=== PATIENT | male | born 1970 | race African-American/Black ===

== ENCOUNTER 2018-11-10 10:56 | Emergency (ER) | payer BC ==
[~2018-11-10] VITALS: Ht 182.9 cm; Wt 87.2 kg
--- NOTE | 2018-11-10 11:05 | NUR ---
BIB SELF, WITH C/O L ABDOMEN AND FLANK PAIN SINCE SUNDAY, "IT WAS UNBEARABLE PAIN THIS MORNING". TO ER BED 7, HOOKED TO MONITOR, CHANGED TO GOWN, AWAITING MD ZAFAR.
--- NOTE | 2018-11-10 11:35 | NUR ---
DR GOMEZ AT BEDSIDE
[2018-11-10] MEDS ORDERED: KETOROLAC TROMETHAMINE INJ 30 MG/ML VIAL ONE (11:58)
[2018-11-10] MEDS ORDERED: ONDANSETRON HCL/PF 4 MG/2 ML VIAL ONE (11:58)
[2018-11-10] MEDS ORDERED: HYDROMORPHONE 1 MG/1 ML DISP.SYRIN ONE (11:59)
--- NOTE | 2018-11-10 11:59 | NUR ---
DILAUDID 0.5MG IV WASTE WITNESSED BY MYSELF
[2018-11-10] MEDS ORDERED: ONDANSETRON HCL/PF - ER 4 MG/2 ML VIAL IV ONE (12:00)
[2018-11-10] MEDS ORDERED: KETOROLAC TROMETHAMINE INJ 30 MG/ML VIAL IV ONE (12:00)
[2018-11-10] MEDS ORDERED: IV NS 0.9% 1,000 ML BAG IV ONE (12:00)
[2018-11-10] MEDS ORDERED: HYDROMORPHONE INJ 0.5 MG/0.5 ML SYRINGE IV ONE (12:00)
--- NOTE | 2018-11-10 13:38 | NUR ---
IV removed. Catheter intact and site benign. Pressure and 4x4 applied to site. No bleeding noted.Patient discharged to home in stable condition. Written and verbal after care instructions given. Patient verbalizes understanding of instruction.
[2018-11-10 13:40] VITALS: BP 118/69
== END 2018-11-10 13:40 | disposition home or self-care (01) ==
LOC: ER 10:59
DX: N20.0 Calculus of kidney (principal)
CPT/HCPCS: A4606; J1170; J1885; J2405; J7030; Z7610

== ENCOUNTER 2024-05-03 09:21 | Emergency (ER) | payer BC, OTHER ==
[~2024-05-03] VITALS: Ht 185.4 cm; Wt 79.4 kg
[2024-05-03] MEDS ORDERED: ONDANSETRON HCL/PF 4 MG/2 ML VIAL ONE (10:01)
[2024-05-03] MEDS ORDERED: MORPHINE SULFATE INJ 4 MG/ML DISP.SYRIN ONE (10:01)
[2024-05-03 10:07] LABS: BASOPHILS % (AUTO) 0.3 % (0.0-2.0); EOSINOPHILS % (AUTO) 0.1 % (0.0-6.0); HEMATOCRIT 41 % (39-51); LYMPHOCYTES # (AUTO) 0.6 K/uL (0.8-4.8); LYMPHOCYTES % (AUTO) 5.1 % (20.0-44.0); MEAN CORPUSCULAR HEMOGLOBIN 24 PG (26.0-33.0); MEAN CORPUSCULAR HGB CONC 32 g/dl (31.0-36.0); MEAN CORPUSCULAR VOLUME 76 fL (80-96); MONOCYTES # (AUTO) 0.5 K/uL (0.1-1.30); MONOCYTES % (AUTO) 4.8 % (2.0-12.0); NEUTROPHILS # (AUTO) 9.9 K/uL (1.8-8.9); NEUTROPHILS % (AUTO) 89.7 % (43.0-81.0); PLATELET COUNT (AUTO) 185 K/uL (150-450); RED BLOOD CELL COUNT(AUTO) 5.39 MIL/uL (4.5-6.0); RED CELL DISTRIBUTION WIDTH 14.5 % (11.5-15.0); WHITE BLOOD COUNT (AUTO) 11.1 K/uL (4.3-11.0)
[2024-05-03 10:12] LABS: APPEARANCE,URINE CLEAR (CLEAR); BILIRUBIN,URINE 2+ (NEGATIVE); BLOOD, URINE 2+ Ery/uL (NEGATIVE); COLOR,URINE YELLOW (YELLOW); KETONES,URINE 3+ mg/dL (NEGATIVE); LEUKOCYTE ESTERASE ,URINE NEGATIVE (NEGATIVE); NITRITE, URINE NEGATIVE (NEGATIVE); PROTEIN,URINE TRACE mg/dl (NEGATIVE); UGLUCOSE NEGATIVE (NEGATIVE)
[2024-05-03] MEDS: IV NS 0.9% 1,000 ML BAG IV ONE (10:12)
[2024-05-03 10:16] LABS: ADD URINE CULTURE NO; BACTERIA,URINE Rare /HPF (None Seen); SQUAMOUS EPITHELIAL CELL,UR Few /HPF (None Seen); WBC,URINE 0-2 /HPF (0-3)
[2024-05-03] MEDS: ONDANSETRON HCL/PF 4 MG/2 ML VIAL IVP ONE (10:19)
[2024-05-03] MEDS: MORPHINE SULFATE INJ 2 MG/ML DISP.SYRIN IV ONE (10:22)
[2024-05-03 10:35] LABS: ALBUMIN 3.6 g/dL (3.4-5.0); BILIRUBIN,DIRECT 0.3 mg/dL (0.0-0.2); BILIRUBIN,TOTAL 1.8 mg/dL (0.2-1.0); CALCIUM, SERUM 9.7 mg/dL (8.5-10.1); TOTAL PROTEIN, SERUM 7.7 g/dL (6.4-8.2)
[2024-05-03 10:36] LABS: POTASSIUM 3.9 mmol/L (3.5-5.1)
[2024-05-03 10:37] LABS: CREATININE 1.1 mg/dL (0.6-1.3)
[2024-05-03] MEDS ORDERED: KETO10TA2 PO (12:01)
[2024-05-03] MEDS ORDERED: TAMS-12 PO (12:01)
[2024-05-03] MEDS ORDERED: ONDA4TAB11 PO (12:01)
[2024-05-03 12:08] VITALS: BP 125/79; TEMP 98.1; O2SAT 99
== END 2024-05-03 12:09 | disposition home or self-care (01) ==
LOC: ER 09:21
DX: N20.2 Calculus of kidney with calculus of ureter (principal); R10.31 Right lower quadrant pain
CPT/HCPCS: 99285; 74176; 96374; 96361; 96375; 85025; 80048; 83690; 80076; 81001; 36415; J2270; J2405; J7030